=== PATIENT | female | born 1960 | race Caucasian/White ===

== ENCOUNTER 2020-11-09 12:06 | Observation (INO) | payer BC, MEDICARE ==
[2020-11-09] MEDS ORDERED: LIDOCAINE 1% INJ 10MG/ML (20 ML MDV) ONE (12:27)
[2020-11-09] MEDS ORDERED: VERAPAMIL 2.5 MG/ML 2 ML AMP ONE (12:27)
[2020-11-09] MEDS ORDERED: fentaNYL (PF) 50 MCG/ML 2 ML AMP ONE (12:46)
[2020-11-09] MEDS ORDERED: HEPARIN SODIUM 1,000 UN/ML (10ML VL) ONE (12:48)
[2020-11-09] MEDS ORDERED: fentaNYL (PF) 50 MCG/ML 2 ML AMP IVP ONE (12:50)
[2020-11-09] MEDS ORDERED: MIDAZOLAM 2 MG/2 ML VIAL IVP ONE (12:50)
[2020-11-09] MEDS ORDERED: LIDOCAINE 1% INJ 10MG/ML (20 ML MDV) SQ ONE (12:51)
[2020-11-09] MEDS ORDERED: VERAPAMIL SYRINGE (5 MG/10 ML) INTRAARTER ONE ×2 (12:52→12:54)
[2020-11-09] MEDS ORDERED: IV FLUID CONTINUATION 1,000 ML IV ONE (12:52)
[2020-11-09] MEDS ORDERED: HEPARIN SODIUM 1,000 UN/ML (10ML VL) IV ONE (12:56)
[2020-11-09] MEDS ORDERED: IOPAMIDOL-370 125ML BTL INJ ONE (13:07)
[2020-11-09] MEDS ORDERED: RX INFO: IV CONTRAST WAS GIVEN 1 EACH MISC MISCELLANE PRN (13:18)
--- NOTE | 2020-11-09 13:28 | P.CARDCATH ---
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 Her echo [place] showed severe hypokinesia of the anteroapical, apical and inferoapical wall. Patient is advised to have a cardiac catheterization for definitive diagnosis. EKG showed a sinus rhythm minutes 4 R-wave progression in anterior leads CONSENT:I have discussed the risks, benefits and alternative therapies for the above-mentioned procedure and for both sedation/analgesia as well as necessary blood product administration, if indicated, as they pertain to this patient. The patient has indicated understanding and acceptance of the risks and procedures discussed. PROCEDURE: Patient was brought to the lab in a fasting state. Patient was given some IV sedation. The right wrist is infiltrated with lidocaine and right femoral artery was entered using Seldinger technique. A 6-Swedish catheter was left in place and selective coronary arteriography and left ventriculography was performed. Patient tolerated the procedure well. TR band was applied for hemostasis. No immediate complications were noted and patient was transferred to stepdown unit in a stable condition Conscious Sedation: Versed 1mg Fentanyl 25 g Duration 17minutes HEMODYNAMICS: The aortic pressure was 130/70. Left ventricle end-diastolic was about 5-10. There was no gradient across the aortic valve SELECTIVE CORONARY ARTERIOGRAPHY: LEFT MAIN: Normal length and free of occlusive disease THE LEFT ANTERIOR DESCENDING CORONARY ARTERY: Is a good caliber vessel reaching the apex. Gives rise to moderate caliber diagonal septal branches. Free of any occlusive disease THE LEFT CIRCUMFLEX AND IS CORONARY ARTERY: Nondominant vessel free of occlusive disease THE RIGHT CORONARY ARTERY: . Dominant vessel with ostial stenosis of about 40-50%. Rest of the vessel is free of occlusive disease. The whole aorta seemed to be calcified LEFT VENTRICULOGRAPHY: . This revealed severe hypokinesia with a anteroapical, apical and inferoapical wall consistent with apical ballooning syndrome FINAL IMPRESSION: #1. Apical ballooning syndrome #2. Mild to moderate coronary artery disease involving the ostium of the right coronary artery PLAN: Maximum medical therapy and this factor modification PROGNOSIS: Guarded
[2020-11-09] MEDS ORDERED: ALBUTEROL NEBULIZED 2.5 MG/3 ML INHALATION PRN (14:04)
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
[2020-11-09] MEDS: HEPARIN SODIUM,PORCINE/PF 5,000 UNIT/0.5 ML SYRINGE SQ SCH (16:00)
[2020-11-09] MEDS ORDERED: ACETAMINOPHEN TAB 325 MG TAB PO PRN (18:20)
[2020-11-09] MEDS: METOPROLOL TARTRATE 25 MG TAB PO SCH (20:23)
[2020-11-09] MEDS ORDERED: FAMOTIDINE 20 MG TAB PO SCH (21:00)
[2020-11-09] MEDS ORDERED: MELATONIN 3 MG TABLET PO SCH (21:00)
[2020-11-09] MEDS ORDERED: ASPIRIN 81 MG PO SCH (21:00)
[2020-11-09] MEDS: guaiFENesin 600 MG TABLET.ER PO PRN (23:14)
[2020-11-10 01:15] VITALS: RESP 18
[2020-11-10] MEDS: HEPARIN SODIUM,PORCINE/PF 5,000 UNIT/0.5 ML SYRINGE SQ SCH ×2 (07:01→09:18)
--- NOTE | 2020-11-10 07:27 | P.PN ---
Subjective Progress Note Date: 11/10/20 Principal diagnosis: Stress-induced cardiomyopathy The patient was seen this morning. She remains asymptomatic from a cardiovascular standpoint of view. No chest pain or chest discomfort nor shortness of breath. She is on aspirin and statin and metoprolol and also lisinopril. She is requesting to go home. Objective - Vital Signs Vital signs: Vital Signs Temp 97.9 F 11/10/20 04:00 Pulse 67 11/10/20 04:00 Resp 18 11/10/20 04:00 BP 132/78 11/10/20 04:00 Pulse Ox 94 L 11/10/20 04:00 Intake & Output 11/09/20 11/10/20 11/10/20 18:59 06:59 18:59 Intake Total 772 Balance 772 Weight 56.8 kg 56.3 kg Intake: IV 50 Oral 722 Other: Voiding Method Toilet Toilet # Voids 1 1 # Bowel Movements 1 - Constitutional General appearance: Present: no acute distress - Respiratory Respiratory: bilateral: CTA - Cardiovascular Rhythm: regular Heart sounds: normal: S1, S2 Assessment and Plan Assessment: Assessment #1 stress induced cardiomyopathy #2 significant history of smoking Plan #1 smoking cessation was discussed with the patient #2 continue the current medical regimen #3 the patient can be discharged home
[2020-11-10 08:48] LABS: Basophils # (A) 0.1 k/uL (0-0.2); Basophils % (A) 1 %; Eosinophils # (A) 0.1 k/uL (0-0.7); Eosinophils % (A) 1 %; HCT 44.5 % (34.0-46.0); Lymphocytes # (A) 2.2 k/uL (1.0-4.8); Lymphocytes % (A) 27 %; MCH 32.8 pg (25.0-35.0); MCHC 33.8 g/dL (31.0-37.0); MCV 97.2 fL (80.0-100.0); Monocytes # (A) 0.5 k/uL (0-1.0); Monocytes % (A) 6 %; Neutrophils # (A) 5.2 k/uL (1.3-7.7); Neutrophils % (A) 63 %; Platelet Count 288 k/uL (150-450); RBC 4.58 m/uL (3.80-5.40); RDW 13.7 % (11.5-15.5); WBC 8.3 k/uL (3.8-10.6)
[2020-11-10] MEDS: METOPROLOL TARTRATE 25 MG TAB PO SCH (08:49)
[2020-11-10] MEDS ORDERED: SPIRONOLACTONE 25 MG TAB PO SCH (09:00)
[2020-11-10] MEDS ORDERED: ATORVASTATIN 20 MG TAB PO SCH (09:00)
[2020-11-10] MEDS ORDERED: lisinopriL 5 MG TAB PO SCH (09:00)
[2020-11-10 09:14] LABS: ALT 71 U/L (4-34); AST 58 U/L (14-36); African American GFR (CKD) >90 (>60 ml/min/1.73 sqM); Albumin 3.9 g/dL (3.5-5.0); Alkaline Phosphatase 250 U/L (38-126); Anion Gap 10 mmol/L; Blood Urea Nitrogen 9 mg/dL (7-17); Calcium 9.8 mg/dL (8.4-10.2); Carbon Dioxide 24 mmol/L (22-30); Chloride 101 mmol/L (98-107); Glucose 167 mg/dL (74-99); Non-African American GFR(CKD) >90 (>60 ml/min/1.73 sqM); Potassium 4.3 mmol/L (3.5-5.1); Sodium 135 mmol/L (137-145); Total Bilirubin 0.4 mg/dL (0.2-1.3); Total Protein 6.5 g/dL (6.3-8.2)
[2020-11-10] MEDS: guaiFENesin 600 MG TABLET.ER PO PRN (10:38)
[2020-11-10 11:27] VITALS: BP 118/78; PULSE 70; TEMP 98.1
--- NOTE | 2020-11-10 13:00 | P.DS ---
Providers Date of admission: 11/09/20 13:17 Expected date of discharge: 11/10/20 Attending physician: Philippe Rhodes Consults: 11/10/20 06:46 Consult Physician Routine Consulting Provider: [facility] Consult Reason/Comments: post cath Do you want consulting provider notified?: Yes Primary care physician: Philippe Rhodes [facility] Course: HISTORY OF PRESENT ILLNESS: This is a 60-year-old female with a previous medical history significant for hyperlipidemia, history of COPD, chronic tobacco use and dependence, presented to the emergency department at [facility] with right upper quadrant abdominal pain associated with increased fluttering in her chest as well as increased shortness of breath patient stated that she has been having some epigastric discomfort that was started about a month ago since she was started on Lipitor for hyperlipidemia by her primary care physician Dr. Garcia patient was complaining of increased chest pain and epigastric pain at the same time so she ended up coming to the ER at [facility] while she was in the triage she had an episode of supraventricular tachycardia that was documented an EKG down there, but she was admitted to the hospital for evaluation patient stated that she had a stress test that was done by Dr. López from cardiology about a month ago along with echocardiogram, she also had an event monitor about a year ago that was negative for acute arrhythmias, patient was seen in consultation by cardiology had an echocardiogram that showed ejection fraction of 35-40% with grade 1 abnormal relaxation with hypokinesia of the anteroapical and apical along with infra-apical segment, patient subsequent he was transferred to [facility] for left heart catheterization that showed mild to moderate disease of the ostial lesion of the RCA otherwise the rest of the arteries were free of disease, but it did show apical ballooning syndrome or Takotsobu's syndrome, patient was started on lisinopril 5 minute gram once every day as well as metoprolol 25 mg orally twice every day and a small dose of spironolactone 12.5 mg orally once every day she was admitted to the hospital for further evaluation and treatment. Discharge diagnoses: 1. Apical ballooning syndrome. With ejection fraction of 35-40% 2. Mild to moderate coronary artery disease with ostial lesion about 40-50%. 3. Hyperlipidemia. 4. COPD. 5. Osteoarthritis. 6. Supraventricular tachycardia. 7. Elevated liver function tests. 8. Hyponatremia secondary to hypovolemia. Patient Condition at Discharge: Good Plan - Discharge Summary Discharge Rx Participant: Yes New Discharge Prescriptions: No Action guaiFENesin [Mucinex] 600 mg PO BID Loratadine [Claritin] 10 mg PO DAILY Atorvastatin [Lipitor] 40 mg PO DAILY Omeprazole 20 mg PO DAILY Ergocalciferol [Vitamin D2 (1250 Mcg = 65741 Iu)] 1,250 mcg PO MO Discharge Medication List Atorvastatin [Lipitor] 40 mg PO DAILY 11/09/20 [History] Ergocalciferol [Vitamin D2 (1250 Mcg = 06818 Iu)] 1,250 mcg PO MO 11/09/20 [History] Loratadine [Claritin] 10 mg PO DAILY 11/09/20 [History] Omeprazole 20 mg PO DAILY 11/09/20 [History] guaiFENesin [Mucinex] 600 mg PO BID 11/09/20 [History]
== END 2020-11-10 13:42 | disposition home or self-care (01) ==
LOC: INTOOBSV 13:17 → 3SCARD 13:17 → UNDODISIN 11-10 13:42
PROVIDERS: ADMIT Internal Medicine; ATTEND Internal Medicine
PROC: B2111ZZ Fluoroscopy of Multiple Coronary Arteries using Low Osmolar Contrast (ICD-10-PCS; 2020-11-09)
PROC: B2151ZZ Fluoroscopy of Left Heart using Low Osmolar Contrast (ICD-10-PCS; 2020-11-09)
PROC: 4A023N7 Measurement of Cardiac Sampling and Pressure, Left Heart, Percutaneous Approach (ICD-10-PCS; principal; 2020-11-09 12:29)
DX: I51.81 Takotsubo syndrome (principal); I25.10 Atherosclerotic heart disease of native coronary artery without angina pectoris; I47.1 Supraventricular tachycardia; J44.9 Chronic obstructive pulmonary disease, unspecified; E86.1 Hypovolemia; E87.1 Hypo-osmolality and hyponatremia; I11.9 Hypertensive heart disease without heart failure; E78.5 Hyperlipidemia, unspecified; K21.9 Gastro-esophageal reflux disease without esophagitis; M19.90 Unspecified osteoarthritis, unspecified site; Z90.49 Acquired absence of other specified parts of digestive tract; Z98.890 Other specified postprocedural states; F17.210 Nicotine dependence, cigarettes, uncomplicated; R94.5 Abnormal results of liver function studies; E55.9 Vitamin D deficiency, unspecified; Z71.6 Tobacco abuse counseling; Z79.82 Long term (current) use of aspirin; Z79.899 Other long term (current) drug therapy; Z88.0 Allergy status to penicillin; Z88.1 Allergy status to other antibiotic agents; Z88.5 Allergy status to narcotic agent; Z88.6 Allergy status to analgesic agent; Z88.8 Allergy status to other drugs, medicaments and biological substances; Z80.0 Family history of malignant neoplasm of digestive organs; Z80.42 Family history of malignant neoplasm of prostate; Z80.1 Family history of malignant neoplasm of trachea, bronchus and lung; Z82.49 Family history of ischemic heart disease and other diseases of the circulatory system; Z82.5 Family history of asthma and other chronic lower respiratory diseases; Z83.1 Family history of other infectious and parasitic diseases; Z83.79 Family history of other diseases of the digestive system
CPT/HCPCS: 94640; 93458; 80053; 85025; G0378 ×2; G0379; C1894; J2250; J2001; J3010; J1644 ×2; Q9967